=== PATIENT | female | born 1970 | race Caucasian/White ===

== ENCOUNTER 2016-11-25 17:09 | Emergency (ER) | payer BC ==
--- NOTE | 2016-11-25 19:14 | ED.PDOC ---
History of Present Illness - General Chief Complaint: Dental/Mouth Stated Complaint: Right jaw swelling Time Seen by Provider: 11/25/16 19:13 Source: patient Exam Limitations: no limitations - History of Present Illness Initial Comments: Pastora Rodriguez 46 y/o female with multiple dental decay stated that swelling on right side of her face gradually got worse the last 3 days had been scheduled for dental procedures but wqas postponed since her pro time also is high since she takes coumadin for her dvt right leg due to lupus anti coagulants. Timing/Duration: gradual, other - 3 days ago EENT Location: dental Prearrival Treatment: no prearrival treatment Improving Factors: nothing Worsening Factors: nothing Associated Symptoms: facial pain/swelling Allergies/Adverse Reactions: Allergies Codeine Allergy (Verified 05/12/15 18:33) Home Medications: Ambulatory Orders HYDROcodone 10MG/APAP 325MG [[place] 10/325] 1 tab PO Q4H PRN 05/12/15 Levothyroxine Sodium 75 mcg PO DAILY 05/12/15 Ondansetron [Zofran Odt] 4 mg PO BID PRN #7 tab 05/12/15 Quetiapine Fumarate [Seroquel] 50 mg PO BEDTIME 05/12/15 Tramadol HCl 50 mg PO QID PRN #20 tab 05/12/15 Warfarin Sodium [Coumadin] 5 mg PO DAILY 05/12/15 Amoxicillin [Amoxil] 1,000 mg PO TID #60 cap 11/25/16 Tramadol HCl 50 mg PO TID #20 tab 11/25/16 Review of Systems - Review of Systems Constitutional: States: no symptoms reported EENTM: States: see HPI, mouth pain Respiratory: States: no symptoms reported Cardiology: States: no symptoms reported Gastrointestinal/Abdominal: States: no symptoms reported Genitourinary: States: no symptoms reported Musculoskeletal: States: no symptoms reported Skin: States: no symptoms reported Neurological: States: no symptoms reported Endocrine: States: no symptoms reported Hematologic/Lymphatic: States: no symptoms reported Past Medical History (General) - Patient Medical History Hx Seizures: No Hx Stroke: Yes Hx Dementia: No Hx Asthma: No Hx of COPD: No Hx Cardiac Disorders: No Hx Congestive Heart Failure: No Hx Pacemaker: No Hx Hypertension: No Hx Thyroid Disease: Yes Hx Diabetes: No Hx Gastroesophageal Reflux: Yes Hx Renal Disease: No Hx Cancer: No Hx of HIV: No Hx Hepatitis C: No Hx MRSA: No Hx Other - free text: Lupus anticoagulant,DVT right leg Surgical History: tonsillectomy, other - hysterectomy - Vaccination History Hx Tetanus, Diphtheria Vaccination: Yes Hx Influenza Vaccination: No Hx Pneumococcal Vaccination: No Immunizations Up to Date: Yes - Social History Hx Tobacco Use: Yes Hx Physical Abuse: No Hx Emotional Abuse: No - Activities of Daily Living Patient Lives Alone: No - family - Female History Patient is a Female of Child Bearing Age (10 -59 yrs old): Yes Patient : No Family Medical History - Family History Mother Family History: Unknown Living Status: Unknown Hx Cardiac Disease: Yes - mom Hx Family;Other: Rheumatoid arthritis Physical Exam - Physical Exam General Appearance: Alert, No apparent distress, Other - swelling right side face Eye Exam: bilateral normal, bilateral other - MARILUZ,EOMI Ear Exam: bilateral ear: auricle normal, canal normal, TM normal Nasal Exam: normal inspection Throat Exam: dental tenderness - right side multiple decayed teeth upper molars right Neck: non-tender, full range of motion, supple, lymphadenopathy (L) Cardiovascular/Respiratory: regular rate, rhythm, normal peripheral pulses, normal breath sounds Abdominal Exam: non-tender, no organomegaly, no hernia Neurologic: alert, oriented x 3 Skin Exam: normal color, warm/dry Progress - Results/Orders Results/Orders: Vital Signs 11/25/16 17:48 Temperature 97.9 F Pulse Rate [ 83 Right radial] Respiratory 20 Rate Blood Pressure 130/92 [Left Arm] O2 Sat by Pulse 97 Oximetry Departure - Departure Clinical Impression: Dental abscess, Dental caries of root surface Cellulitis Qualifiers: Site of cellulitis: face Qualified Code(s): L03.211 - Cellulitis of face Time of Disposition: 22:12 Disposition: Discharge to Home or Self Care Condition: Fair Departure Forms: ED Discharge - Pt. Copy, Patient Portal Self Enrollment Instructions: Tooth Abscess Referrals: Yaquelin Downing NP [Primary Care Provider] - 1-2 Weeks Prescriptions: Amoxicillin [Amoxil] 1,000 mg PO TID #60 cap Tramadol HCl 50 mg PO TID #20 tab Home Medications: Ambulatory Orders HYDROcodone 10MG/APAP 325MG [[place] 10/325] 1 tab PO Q4H PRN 05/12/15 Levothyroxine Sodium 75 mcg PO DAILY 05/12/15 Ondansetron [Zofran Odt] 4 mg PO BID PRN #7 tab 05/12/15 Quetiapine Fumarate [Seroquel] 50 mg PO BEDTIME 05/12/15 Tramadol HCl 50 mg PO QID PRN #20 tab 05/12/15 Warfarin Sodium [Coumadin] 5 mg PO DAILY 05/12/15 Amoxicillin [Amoxil] 1,000 mg PO TID #60 cap 11/25/16 Tramadol HCl 50 mg PO TID #20 tab 11/25/16 Additional Instructions: NEED TO MAKE APPOINTMENT WITH DENTIST SOON POSSIBLE PATIENT TO CALL
[2016-11-25] MEDS ORDERED: CLINDAMYCIN HCL CAP 150 MG CAP PO ONE (19:34)
[2016-11-25] MEDS ORDERED: CLINDAMYCIN IV 600MG 600 MG in PREMIX BAG 1 BAG IVPB ONE (19:34)
[2016-11-25] MEDS ORDERED: KETOROLAC TROMETHAMINE INJ 30 MG/ML VIAL IV ONE (19:35)
[2016-11-25] MEDS ORDERED: HYDROcodone 10MG/APAP 325MG 1 EA TAB PO ONE (19:36)
[2016-11-25] MEDS ORDERED: CLINDAMYCIN IV 600MG 50 ML IVPB ONE (19:49)
[2016-11-25] MEDS ORDERED: MORPHINE SULFATE INJ 10 MG/ML VIAL IM ONE (22:08)
[2016-11-25] MEDS ORDERED: PROMETHAZINE HCL INJ 25 MG/ML VIAL IM ONE (22:08)
[2016-11-25] MEDS ORDERED: HYDROCOD/APAP 10/325 (ER DISP) # 3 tablets PO ONE (22:17)
[2016-11-25] MEDS ORDERED: TETANUS,DIPHTHERIA,PERTUSSIS 1 EA SYG IM ONE (23:10)
[2016-11-26 01:26] VITALS: BP 146/87; TEMP 97.8; O2SAT 96
== END 2016-11-25 23:50 | disposition home or self-care (01) ==
LOC: ER 17:09
DX: K04.7 Periapical abscess without sinus (principal); K02.7 Dental root caries; M32.9 Systemic lupus erythematosus, unspecified; I82.401 Acute embolism and thrombosis of unspecified deep veins of right lower extremity; L03.211 Cellulitis of face; E07.9 Disorder of thyroid, unspecified; Z79.01 Long term (current) use of anticoagulants; Z88.6 Allergy status to analgesic agent; K21.9 Gastro-esophageal reflux disease without esophagitis; Z86.73 Personal history of transient ischemic attack (TIA), and cerebral infarction without residual deficits; Z87.891 Personal history of nicotine dependence; Z23 Encounter for immunization
CPT/HCPCS: 90715; J2270; J2550; J3490

== ENCOUNTER 2018-10-06 16:26 | Emergency (ER) | payer SELFPAY ==
--- NOTE | 2018-10-06 16:58 | ED.PDOC ---
History of Present Illness - General Chief Complaint: General Stated Complaint: nausea and vomiting, headache, dizzy Time Seen by Provider: 10/06/18 16:38 Source: patient Exam Limitations: no limitations - History of Present Illness Initial Comments: ONSET LAST NIGHT, VENEGAS MORE ON THE FRONTAL AREA WITH NASAL CONGESTION AND ASSOCIATED WITH NAUSEA AND VOMITING. DENIES ANY FEVER. SHE HAS COUGHED UP SOME PHLEGM AND SHE FEELS THAT SHE IS GETTING A SINUS INFECTION. THE HEADACHE RADIATES THROUGHT THE HEAD AND RATES IT AT 10/10. SHE HURTS MORE WHENEVER SHE MOVES HER HEAD. Timing/Duration: other - 12 HRS Severity: severe Improving Factors: nothing Worsening Factors: movement Associated Symptoms: cough, nausea/vomiting Allergies/Adverse Reactions: Allergies Codeine Allergy (Verified 05/12/15 18:33) Home Medications: Ambulatory Orders Oimfsheakwbkr-Mqku-Vfyxfmmgat [Fioricet] 1 ea PO Q8HRS #15 tab 10/06/18 Amoxicillin & Pot Clavulanate [Augmentin Tab] 875 mg PO BID #20 tab 10/06/18 Review of Systems - Review of Systems Constitutional: States: malaise EENTM: States: nose congestion Respiratory: States: cough Cardiology: States: no symptoms reported Gastrointestinal/Abdominal: States: no symptoms reported Genitourinary: States: no symptoms reported Musculoskeletal: States: no symptoms reported Skin: States: no symptoms reported Neurological: States: headache Endocrine: States: no symptoms reported Hematologic/Lymphatic: States: no symptoms reported Past Medical History (General) - Patient Medical History Hx Seizures: No Hx Stroke: Yes Hx Dementia: No Hx Asthma: No Hx of COPD: No Hx Cardiac Disorders: No Hx Congestive Heart Failure: No Hx Pacemaker: No Hx Hypertension: No Hx Thyroid Disease: Yes Hx Diabetes: No Hx Gastroesophageal Reflux: Yes Hx Renal Disease: No Hx Cancer: No Hx of HIV: No Hx Hepatitis C: No Hx MRSA: No - Vaccination History Hx Tetanus, Diphtheria Vaccination: Yes Hx Influenza Vaccination: No Hx Pneumococcal Vaccination: No - Social History Hx Tobacco Use: Yes Hx Physical Abuse: No Hx Emotional Abuse: No - Female History Patient : No Family Medical History - Family History Mother Family History: Unknown Living Status: Unknown Hx Cardiac Disease: Yes - mom Hx Family;Other: Rheumatoid arthritis Physical Exam - Physical Exam General Appearance: Alert, Well Developed, Well Groomed, Well Nourished Eye Exam: bilateral normal Ears, Nose, Throat: hearing grossly normal Neck: non-tender, full range of motion, supple, normal inspection Respiratory: chest non-tender, lungs clear, normal breath sounds, no respiratory distress, no accessory muscle use Cardiovascular/Chest: normal peripheral pulses, regular rate, rhythm, no edema, no gallop, no JVD Peripheral Pulses: radial,right: 2+ Gastrointestinal/Abdominal: normal bowel sounds Rectal Exam: deferred Back Exam: normal inspection Extremity: normal range of motion 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 10/06/18 18:00 she feels much better, desires to go home. - Results/Orders Results/Orders: 10/06/18 17:00 diphenhydrAMINE HCL [Benadryl] 25 mg IV ONCE Laboratory Results WBC 6.5 K/mm3 (4.8-10.8) 10/06/18 17:13 RBC 4.34 M/mm3 (4.20-5.40) 10/06/18 17:13 Hgb 14.2 gm/dL (12.0-16.0) 10/06/18 17:13 Hct 41.6 % (36.0-47.0) 10/06/18 17:13 MCV 95.8 fl (81.0-99.0) 10/06/18 17:13 MCH 32.6 pg (27.0-31.0) H 10/06/18 17:13 MCHC 34.1 g/dL (33.0-37.0) 10/06/18 17:13 RDW 13.3 % (11.5-14.5) 10/06/18 17:13 Plt Count 216 K/mm3 (130-400) 10/06/18 17:13 MPV 8.4 fl (7.40-10.4) 10/06/18 17:13 Absolute Neuts (auto) 4.30 K/uL (1.8-6.8) 10/06/18 17:13 Absolute Lymphs (auto) 1.70 K/uL (1.0-3.4) 10/06/18 17:13 Absolute Monos (auto) 0.40 K/uL (0.2-0.8) 10/06/18 17:13 Absolute Eos (auto) 0.00 K/uL (0.0-0.4) 10/06/18 17:13 Absolute Basos (auto) 0.00 K/uL (0.0-0.1) 10/06/18 17:13 Neutrophils % 66.1 % (42.0-78.0) 10/06/18 17:13 Lymphocytes % 25.9 % (20.0-50.0) 10/06/18 17:13 Monocytes % 6.8 % (2.0-9.0) 10/06/18 17:13 Eosinophils % 0.5 % (1.0-5.0) L 10/06/18 17:13 Basophils % 0.7 % (0.0-2.0) 10/06/18 17:13 Sodium 137 mmol/L (135-145) 10/06/18 17:13 Potassium 3.9 mmol/L (3.6-5.0) 10/06/18 17:13 Chloride 102 mmol/L (101-111) 10/06/18 17:13 Carbon Dioxide 26 mmol/L (21-31) 10/06/18 17:13 Anion Gap 12.9 (12-18) 10/06/18 17:13 BUN 10 mg/dL (7-18) 10/06/18 17:13 Creatinine 0.90 mg/dL (0.6-1.3) 10/06/18 17:13 BUN/Creatinine Ratio 11.1 (10-20) 10/06/18 17:13 Random Glucose 89 mg/dL (70-105) 10/06/18 17:13 Serum Osmolality 272.3 mOsm/L (275-295) L 10/06/18 17:13 Calcium 9.6 mg/dL (8.4-10.2) 10/06/18 17:13 Total Bilirubin 0.7 mg/dL (0.2-1.0) 10/06/18 17:13 AST 21 IU/L (10-42) 10/06/18 17:13 ALT 19 IU/L (10-60) 10/06/18 17:13 Alkaline Phosphatase 61 IU/L (42-121) 10/06/18 17:13 Serum Total Protein 7.3 gm/dL (6.4-8.2) 10/06/18 17:13 Albumin 4.0 g/dl (3.2-5.5) 10/06/18 17:13 Globulin 3.3 gm/dL (2.3-3.5) 10/06/18 17:13 Albumin/Globulin Ratio 1.2 (1.1-1.9) 10/06/18 17:13 Departure - Departure Clinical Impression: Sinusitis Qualifiers: Sinusitis location: frontal Chronicity: acute Recurrence: non-recurrent Qualified Code(s): J01.10 - Acute frontal sinusitis, unspecified Headache Qualifiers: Headache type: other vascular headache Qualified Code(s): G44.1 - Vascular headache, not elsewhere classified Time of Disposition: 18:02 Disposition: Discharge to Home or Self Care Departure Forms: ED Discharge - Pt. Copy, Patient Portal Self Enrollment Diet: resume usual diet Prescriptions: Ujfwnlwfrartd-Kwnv-Ntvdtgrcym [Fioricet] 1 ea PO Q8HRS #15 tab Amoxicillin & Pot Clavulanate [Augmentin Tab] 875 mg PO BID #20 tab Home Medications: Ambulatory Orders Dekqvldtcstso-Kede-Oenwbfhdcc [Fioricet] 1 ea PO Q8HRS #15 tab 10/06/18 Amoxicillin & Pot Clavulanate [Augmentin Tab] 875 mg PO BID #20 tab 10/06/18
[2018-10-06] MEDS: diphenhydrAMINE HCL 50 MG/ML VIAL IV SCH (17:20)
[2018-10-06] MEDS: KETOROLAC TROMETHAMINE INJ 30 MG/ML VIAL IV ONE (17:21)
[2018-10-06] MEDS: METOCLOPRAMIDE HCL INJ 10 MG/2 ML VIAL IV ONE (17:21)
[2018-10-06] MEDS: HALOPERIDOL LACTATE INJ 5 MG/ML VIAL IV ONE (17:21)
[2018-10-06 17:30] VITALS: TEMP 98.8
--- NOTE | 2018-10-06 17:30 | CT ---
EXAM: CT Head Without Intravenous Contrast CLINICAL HISTORY: The patient is 48 years old and is Female; headache, frontal and maxillary sinus pain TECHNIQUE: Axial computed tomography images of the head/brain without intravenous contrast. Sagittal and coronal reformatted images were created and reviewed. This CT exam was performed using one or more of the following dose reduction techniques: automated exposure control, adjustment of the mA and/or kV according to patient size, and/or use of iterative reconstruction technique. COMPARISON: No relevant prior studies available. FINDINGS: BRAIN: Focal area of low attenuation within the right posterior parietal lobe is present. Mild compensatory dilatation of the right lateral ventricle. The sanchez-white differentiation is otherwise maintained. There is no intracranial hemorrhage, mass effect, or midline shift. There are no extra-axial fluid collections. VENTRICLES: See above. BONES/JOINTS: No acute fracture. SOFT TISSUES: Unremarkable. SINUSES: Mucoperiosteal thickening of the bilateral sphenoid sinuses, left greater than right is present. MASTOID AIR CELLS: Unremarkable as visualized. No mastoid effusion. IMPRESSION: 1. No acute intracranial findings. 2. Findings suggestive of remote right posterior parietal infarct with compensatory dilatation of the right lateral ventricle. Electronically signed by: Odette Travis MD 10/06/2018 5:28 PM CDT
[2018-10-06] MEDS ORDERED: cefTRIAXone SODIUM 1 GM VIAL ONE (18:05)
[2018-10-06] MEDS ORDERED: SODIUM CHL 0.9% 50ML MIN-BAG+ 50 ML IVPB ONE (18:05)
[2018-10-06] MEDS: cefTRIAXone SODIUM 1 GM in SODIUM CHL 0.9% 50ML MIN-BAG+ 50 ML IVPB ONE (18:14)
[2018-10-06 19:01] VITALS: BP 130/88; O2SAT 99
== END 2018-10-06 18:52 | disposition home or self-care (01) ==
LOC: ER 16:26
DX: J01.10 Acute frontal sinusitis, unspecified (principal); G44.1 Vascular headache, not elsewhere classified; E07.9 Disorder of thyroid, unspecified; K21.9 Gastro-esophageal reflux disease without esophagitis; Z86.73 Personal history of transient ischemic attack (TIA), and cerebral infarction without residual deficits; Z87.891 Personal history of nicotine dependence; Z88.5 Allergy status to narcotic agent
CPT/HCPCS: 36415; 70450; 80053; 85025; J0696; J1200; J1630; J1885; J2765; J7050

== ENCOUNTER 2019-02-27 12:59 | Emergency (ER) | payer SELFPAY ==
--- NOTE | 2019-02-27 15:27 | US ---
EXAM DESCRIPTION: Venous,Lower Extremity RT: ULTRASOUND. CLINICAL HISTORY: RLE swelling, hx coagulopathy. Previous DVT right lower extremity. COMPARISON: None Available. TECHNIQUE: Mcgee-scale and doppler sonographic evaluation of the deep venous system of the right lower extremity. FINDINGS: Doppler evaluation shows normal color flow and normal phasicity and augmentation of the right common femoral vein, deep femoral vein, femoral vein, popliteal vein, greater/lesser saphenous vein, junction with the CFV. Also normal color flow and normal phasicity and augmentation of the peroneal, and posterior tibial vein. The right lower extremity deep veins were completely compressible; normal occlusion with transducer pressure. Mcgee-scale survey showed no acute thrombus within these veins. Echogenic chronic thrombus is visualized. IMPRESSION: 1. Duplex ultrasound evaluation of the right lower extremity deep venous system showing no evidence of acute thrombosis. 2. Minimal echogenic material in the venous lumen indicating mild chronic thrombosis, consistent with clinical history. Electronically signed by: Yann Alvarez MD 02/27/2019 3:26 PM CDT
[2019-02-27] MEDS ORDERED: WARFARIN SODIUM 5 MG TAB PO ONE (15:35)
[2019-02-27] MEDS ORDERED: ENOXAPARIN SODIUM 80 MG/0.8 ML SYG SUBCU ONE (15:36)
--- NOTE | 2019-02-27 15:38 | ED.PDOC ---
History of Present Illness - General Chief Complaint: General Stated Complaint: right leg swelling Time Seen by Provider: 02/27/19 13:18 Source: patient Exam Limitations: no limitations - History of Present Illness Initial Comments: the patient is a 48-year-old female presenting to the emergency room secondary to right lower extremity swelling. The patient is concerned for another DVT. 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 No fever. No shortness of breath. No chest pain. She is anxious over this. She has been off of anticoagulation for the last 2 years secondary to funding issues. She did previously take Coumadin 5 mg daily and that was a very steady dose for her for a long period of time. Timing/Duration: 24 hours Severity: moderate Improving Factors: nothing Worsening Factors: nothing Associated Symptoms: denies symptoms Allergies/Adverse Reactions: Allergies Codeine Allergy (Verified 05/12/15 18:33) Home Medications: Ambulatory Orders Warfarin Sodium [Coumadin] 5 mg PO DAILY #14 tab 02/27/19 Review of Systems - Review of Systems Constitutional: States: no symptoms reported EENTM: States: no symptoms reported Respiratory: States: no symptoms reported Cardiology: States: no symptoms reported Gastrointestinal/Abdominal: States: no symptoms reported Genitourinary: States: no symptoms reported Musculoskeletal: States: no symptoms reported Skin: States: no symptoms reported - the patient does have scars from previous fasciotomies to the right lower extremity. Neurological: States: anxiety Endocrine: States: no symptoms reported Hematologic/Lymphatic: States: no symptoms reported All other Systems: No Change from Baseline Past Medical History (General) - Patient Medical History Hx Seizures: No Hx Stroke: Yes Hx Dementia: No Hx Asthma: No Hx of COPD: No Hx Cardiac Disorders: No Hx Congestive Heart Failure: No Hx Pacemaker: No Hx Hypertension: No Hx Thyroid Disease: Yes Hx Diabetes: No Hx Gastroesophageal Reflux: Yes Hx Renal Disease: No Hx Cancer: No Hx of HIV: No Hx Hepatitis C: No Hx MRSA: No - Vaccination History Hx Tetanus, Diphtheria Vaccination: Yes Hx Influenza Vaccination: No Hx Pneumococcal Vaccination: No - Social History Hx Tobacco Use: Yes Hx Physical Abuse: No Hx Emotional Abuse: No - Female History Patient : No Family Medical History - Family History Mother Family History: Unknown Living Status: Unknown Hx Cardiac Disease: Yes - mom Hx Family;Other: Rheumatoid arthritis Physical Exam - Physical Exam General Appearance: Alert, Comfortable, No apparent distress Eye Exam: bilateral normal Ears, Nose, Throat: hearing grossly normal, normal ENT inspection Neck: non-tender, supple Respiratory: lungs clear, normal breath sounds, no respiratory distress, no accessory muscle use Cardiovascular/Chest: normal peripheral pulses, regular rate, rhythm Peripheral Pulses: radial,right: 2+, radial,left: 2+, dorsalis pedis,right: 2+, dorsalis pedis,left: 2+ Gastrointestinal/Abdominal: non tender, soft Rectal Exam: deferred Extremity: normal range of motion, normal capillary refill, pedal edema - +1 edema in the right lower extremity. Mild calf Tenderness to palpation but that is apparently somewhat chronic. 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 Right lower extremity venous Doppler was obtained showing no evidence of any acute DVT. There is evidence of her chronic DVT. The patient is given a dose of Lovenox and the dose of 10 mg of Coumadin here. She is going to be written for 5 mg a day of Coumadin for 2 weeks. She needs to get her INR checked around 7-10 days from now. This was apparently her previous Coumadin dose that worked well for her. Monitor for any evidence of spontaneous bleeding. A compression stocking can help reduce discomfort to the right lower extremity. ER warnings were given for any significant worsening. nallely henao [id number] Departure - Departure Clinical Impression: Hypercoagulable state, primary, Dependent edema Disposition: Discharge to Home or Self Care Condition: Fair Departure Forms: ED Discharge - Pt. Copy, Patient Portal Self Enrollment Diet: low salt diet Activity: increase activity as tolerated Prescriptions: Warfarin Sodium [Coumadin] 5 mg PO DAILY #14 tab Home Medications: Ambulatory Orders Warfarin Sodium [Coumadin] 5 mg PO DAILY #14 tab 02/27/19 Additional Instructions: the patient is a 48-year-old female presenting to the emergency room secondary to right lower extremity edema and mild increase in pain that the patient is concerned is a recurrent DVT. Right lower extremity venous Doppler was obtained showing no evidence of any acute DVT. There is evidence of her chronic DVT. The patient is given a dose of Lovenox and the dose of 10 mg of Coumadin here. She is going to be written for 5 mg a day of Coumadin for 2 weeks. She needs to get her INR checked around 7-10 days from now. This was apparently her previous Coumadin dose that worked well for her. Monitor for any evidence of spontaneous bleeding. A compression stocking can help reduce discomfort to the right lower extremity. ER warnings were given for any significant worsening.
[2019-02-27 15:54] VITALS: BP 160/106; TEMP 96.2; O2SAT 100
== END 2019-02-27 15:53 | disposition home or self-care (01) ==
LOC: ER 12:59
DX: R60.0 Localized edema (principal); E07.9 Disorder of thyroid, unspecified; K21.9 Gastro-esophageal reflux disease without esophagitis; Z86.73 Personal history of transient ischemic attack (TIA), and cerebral infarction without residual deficits; Z87.891 Personal history of nicotine dependence; Z98.890 Other specified postprocedural states; Z79.01 Long term (current) use of anticoagulants; Z88.5 Allergy status to narcotic agent
CPT/HCPCS: 93971; J1650

== ENCOUNTER 2019-11-01 09:23 | Emergency (ER) | payer SELFPAY ==
--- NOTE | 2019-11-01 10:31 | RAD ---
EXAM DESCRIPTION: Abdomen Series CLINICAL HISTORY: 49 years Female, nausea, diarrhea COMPARISON: None. FINDINGS: Chest x-ray shows mildly elevated left hemidiaphragm. Heart size is normal with normal pulmonary vascularity. The lungs appear clear. Bones are unremarkable. Upright x-ray abdomen is negative for abnormal air-fluid levels. No free air under the diaphragm. Question small left pleural effusion. Supine x-ray view of abdomen shows calcifications or bowel anastomotic alice in the pelvis. Clinical correlation recommended. Calcified granuloma in the right buttock region. Bones appear normal. No abnormal small bowel dilatation. No mass or visceromegaly. IMPRESSION: Question small left pleural effusion or pleural scarring. Otherwise no acute process in the chest, abdomen or pelvis. Electronically signed by: Christopher Saldivar MD 11/01/2019 10:29 AM CDT
--- NOTE | 2019-11-01 11:51 | CT ---
EXAM DESCRIPTION: Abdomen/Pelvis w/Contrast CLINICAL HISTORY: nausea, diarrhea, rlq pain COMPARISON: None. TECHNIQUE: Postcontrast CT images of the abdomen and pelvis are obtained using standard imaging protocol. This exam was performed according to our departmental dose-optimization program, which includes automated exposure control, adjustment of the mA and/or kV according to patient size and/or use of iterative reconstruction technique . FINDINGS: Visualized lung bases are unremarkable. The liver, spleen, pancreas, adrenal glands, and gallbladder are unremarkable. Mild atherosclerotic disease. No nephrolithiasis. No ureteral calcification or obstruction. Urinary bladder is mildly contracted but unremarkable. The uterus is not identified and presumed surgically absent. The ovaries are not seen. The appendix is normal. 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 Small hiatal hernia. The stomach is poorly distended and otherwise unremarkable. No small bowel obstruction or bowel wall thickening. No diverticular disease or bowel wall thickening. No free intraperitoneal air or abnormal drainable fluid collections. Osseous structures show no aggressive bony lesions. Mild sclerotic changes are seen in the iliac bones adjacent to the SI joints left greater than right possibly representing sacroiliitis. IMPRESSION: No acute findings on CT of the abdomen and pelvis. 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 Presumed postsurgical changes from hysterectomy. No abnormal adnexal mass is seen. No CT evidence of acute appendicitis. Electronically signed by: Adolfo Resendiz MD 11/01/2019 11:50 AM CDT
[2019-11-01] MEDS ORDERED: AMOXICILLIN & POT CLAVULANATE 875 MG TAB PO ONE (12:04)
--- NOTE | 2019-11-01 12:28 | ED.PDOC ---
History of Present Illness - General Chief Complaint: ENT Problem Stated Complaint: sore throat,VENEGAS,body aches Time Seen by Provider: 11/01/19 09:52 Source: patient Exam Limitations: no limitations - History of Present Illness Initial Comments: A sore throat along with some mild nausea and 4 or 5 episodes of diarrhea. No blood. On exam she does have some very mild right lower quadrant discomfort to palpation. No rebound or peritoneal signs at this point. Oropharynx shows mild posterior oropharyngeal erythema. Nares are fairly clear. No evidence of any overt distress. No known coronavirus exposure though the community load of the virus is increasing significantly. Timing/Duration: 24 hours Severity: moderate Improving Factors: nothing Worsening Factors: nothing Associated Symptoms: headaches, loss of appetite, malaise, nausea/vomiting Allergies/Adverse Reactions: Allergies Codeine Allergy (Verified 05/12/15 18:33) Home Medications: Ambulatory Orders Warfarin Sodium [Coumadin] 5 mg PO DAILY #14 tab 02/27/19 Amoxicillin & Pot Clavulanate [Augmentin Tab] 875 mg PO BID #14 tab 11/01/19 Ondansetron Odt [Zofran ODT] 4 mg PO Q8HR PRN #5 tab 11/01/19 Review of Systems - Review of Systems Constitutional: States: malaise EENTM: States: throat pain Respiratory: States: no symptoms reported Cardiology: States: no symptoms reported Gastrointestinal/Abdominal: States: abdominal pain, diarrhea, nausea Genitourinary: States: no symptoms reported Musculoskeletal: States: no symptoms reported Skin: States: no symptoms reported Neurological: States: no symptoms reported Endocrine: States: no symptoms reported All other Systems: No Change from Baseline Past Medical History (General) - Patient Medical History Hx Seizures: No Hx Stroke: Yes Hx Dementia: No Hx Asthma: No Hx of COPD: No Hx Cardiac Disorders: No Hx Congestive Heart Failure: No Hx Pacemaker: No Hx Hypertension: No Hx Thyroid Disease: Yes Hx Diabetes: No Hx Gastroesophageal Reflux: Yes Hx Renal Disease: No Hx Cancer: No Hx of HIV: No Hx Hepatitis C: No Hx MRSA: No Surgical History: tonsillectomy, Hysterectomy - Vaccination History Hx Tetanus, Diphtheria Vaccination: Yes Hx Influenza Vaccination: No Hx Pneumococcal Vaccination: No - Social History Hx Tobacco Use: Yes Hx Physical Abuse: No Hx Emotional Abuse: No - Female History Patient : No Family Medical History - Family History Mother Family History: Unknown Living Status: Unknown Hx Cardiac Disease: Yes - mom Hx Family;Other: Rheumatoid arthritis Physical Exam - Physical Exam General Appearance: Alert, Comfortable, No apparent distress Eye Exam: bilateral normal Ears, Nose, Throat: hearing grossly normal, pharyngeal erythema Neck: full range of motion, supple Respiratory: lungs clear, normal breath sounds, no respiratory distress, no accessory muscle use Cardiovascular/Chest: normal peripheral pulses, regular rate, rhythm, no edema Peripheral Pulses: radial,right: 2+, radial,left: 2+ Gastrointestinal/Abdominal: soft, other - See history of present illness. No rebound or peritoneal signs. No palpable mass. 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, alert, normal mood/affect, oriented x 3 Skin Exam: normal color Comments: Vital Signs - 24 hr 11/01/19 11/01/19 09:32 11:02 Temperature 97.9 F Pulse Rate [ 80 70 Left Brachial] Respiratory 20 16 Rate Blood Pressure 127/98 118/93 [Left Arm] O2 Sat by Pulse 98 95 Oximetry Laboratory Tests 11/01/19 11/01/19 11/01/19 09:56 09:56 10:05 WBC RBC Hgb Hct MCV MCH MCHC RDW Plt Count MPV Absolute Neuts (auto) Absolute Lymphs (auto) Absolute Monos (auto) Absolute Eos (auto) Absolute Basos (auto) Neutrophils % Lymphocytes % Monocytes % Eosinophils % Basophils % Sodium Potassium Chloride Carbon Dioxide Anion Gap BUN Creatinine BUN/Creatinine Ratio Random Glucose Serum Osmolality Calcium Total Bilirubin AST ALT Alkaline Phosphatase Creatine Kinase CK-MB (CK-2) CK-MB (CK-2) % Troponin I Serum Total Protein Albumin Globulin Albumin/Globulin Ratio Amylase Urine Color Yellow Urine Appearance Clear Urine pH 6.0 Ur Specific [place] 1.010 Urine Protein Negative Urine Glucose (UA) Negative Urine Ketones Negative Urine Blood Trace-intact H Urine Nitrite Negative Urine Bilirubin Negative Urine Urobilinogen 0.2 Ur Leukocyte Esterase Negative Urine RBC 0-1 Urine WBC 0-1 Ur Epithelial Cells 1-3 Amorphous Sediment 1+ Urine Bacteria 1+ Urine HCG, Qual Negative Group A Strep Rapid Negative 06/26/20 06/26/20 06/26/20 10:10 10:10 10:10 WBC 11.0 H RBC 4.31 Hgb 14.5 Hct 41.9 MCV 97.2 MCH 33.6 H MCHC 34.5 RDW 12.8 Plt Count 195 MPV 8.4 Absolute Neuts (auto) 8.60 H Absolute Lymphs (auto) 1.60 Absolute Monos (auto) 0.70 Absolute Eos (auto) 0.00 Absolute Basos (auto) 0.10 Neutrophils % 78.8 H Lymphocytes % 14.2 L Monocytes % 6.1 Eosinophils % 0.4 L Basophils % 0.5 Sodium 133 L Potassium 3.7 Chloride 99 L Carbon Dioxide 24 Anion Gap 13.7 BUN 10 Creatinine 1.07 BUN/Creatinine Ratio 9.3 L Random Glucose 98 Serum Osmolality 265.4 L Calcium 9.6 Total Bilirubin 1.0 AST 21 ALT 25 Alkaline Phosphatase 73 Creatine Kinase 52 CK-MB (CK-2) 1.2 CK-MB (CK-2) % Not Reportable Troponin I < 0.02 Serum Total Protein 8.3 H Albumin 4.7 Globulin 3.6 H Albumin/Globulin Ratio 1.3 Amylase 68 Urine Color Urine Appearance Urine pH Ur Specific [place] Urine Protein Urine Glucose (UA) Urine Ketones Urine Blood Urine Nitrite Urine Bilirubin Urine Urobilinogen Ur Leukocyte Esterase Urine RBC Urine WBC Ur Epithelial Cells Amorphous Sediment Urine Bacteria Urine HCG, Qual Group A Strep Rapid Acute abdominal series appears essentially benign. CT scan of the abdomen pelvis shows no evidence of appendicitis or acute infection. 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 The patient does apparently take Coumadin for this. Progress - Progress Progress: 11/01/19 12:29 The patient is a 49-year-old female presented emergency room with a constellation of symptoms. This is possibly simply a viral syndrome. The patient has tested negative for flu and strep. White blood cell count is elevated more consistent with possibly a bacterial pathology giving the gastroenteritis. The patient is going to be placed on Augmentin for 7 days. It is very possible this may be extremely early appendicitis. If the patient's pain in the right lower quadrant is worsening or she is starting to get high spiking fevers, then a repeat evaluation may be warranted. The sore throat is most likely of viral origin. A coronavirus test has been sent off and will be a couple of days and returning. Given the rising numbers of infected people in the community, this is a possibility and the patient should quarantine herself until she hears back from the test results which will likely be Monday. She obviously does not need to do her home health services right now. [email or web address] henao [id number] Departure - Departure Clinical Impression: Gastroenteritis Pharyngitis Qualifiers: Pharyngitis/tonsillitis etiology: unspecified etiology Qualified Code(s): J02.9 - Acute pharyngitis, unspecified Disposition: Discharge to Home or Self Care Condition: Fair Departure Forms: ED Discharge - Pt. Copy, Patient Portal Self Enrollment Instructions: Sore Throat, Adult (DC) Diet: bland diet Activity: increase activity as tolerated Prescriptions: Ondansetron Odt [Zofran ODT] 4 mg PO Q8HR PRN #5 tab PRN Reason: Nausea--Moderate Amoxicillin & Pot Clavulanate [Augmentin Tab] 875 mg PO BID #14 tab Home Medications: Ambulatory Orders Warfarin Sodium [Coumadin] 5 mg PO DAILY #14 tab 02/27/19 Amoxicillin & Pot Clavulanate [Augmentin Tab] 875 mg PO BID #14 tab 11/01/19 Ondansetron Odt [Zofran ODT] 4 mg PO Q8HR PRN #5 tab 11/01/19 Additional Instructions: The patient is a 49-year-old female presented emergency room with a constellation of symptoms. This is possibly simply a viral syndrome. The patient has tested negative for flu and strep. White blood cell count is elevated more consistent with possibly a bacterial pathology giving the gastroenteritis. The patient is going to be placed on Augmentin for 7 days. It is very possible this may be extremely early appendicitis. If the patient's pain in the right lower quadrant is worsening or she is starting to get high spiking fevers, then a repeat evaluation may be warranted. The sore throat is most likely of viral origin. A coronavirus test has been sent off and will be a couple of days and returning. Given the rising numbers of infected people in the community, this is a possibility and the patient should quarantine herself until she hears back from the test results which will likely be Monday. She obviously does not need to do her home health services right now.
[2019-11-01 12:49] VITALS: BP 146/97; TEMP 96.9; O2SAT 98
== END 2019-11-01 12:44 | disposition home or self-care (01) ==
LOC: ER 09:23
DX: K52.9 Noninfective gastroenteritis and colitis, unspecified (principal); J02.9 Acute pharyngitis, unspecified; F17.200 Nicotine dependence, unspecified, uncomplicated; Z79.01 Long term (current) use of anticoagulants; Z86.73 Personal history of transient ischemic attack (TIA), and cerebral infarction without residual deficits